=== PATIENT | male | born 1950 | race Hispanic/Latino ===

== ENCOUNTER 2022-09-18 08:31 | Day surgery (SDC) | payer MEDICARE ==
[2022-09-16 12:05] VITALS: BP 169/72
[2022-09-18] VITALS (11 sets, daily range): BP systolic 126–148; BP diastolic 54–62
[~2022-09-18] VITALS: Ht 157.5 cm; Wt 79.2 kg
[~2022-09-18 08:31] MED LIST: AMLO-258 PO; ATEN25TA PO; ATOR40TA69 PO; CLOP-31 PO; FURO20TA4 PO; LINA72CA PO; LORA10TA7 PO; LOSA100T59 PO; OMEP40CA21 PO; PREG75 PO
[2022-09-18] MEDS ORDERED: CLINDAMYCIN IVPB 900MG/50ML 50 ML IV ONE (08:46)
[2022-09-18] MEDS ORDERED: LACTATED RINGERS 1000ML 1,000 ML IV ONE (08:46)
[2022-09-18] MEDS ORDERED: PROPOFOL 10 MG/ML 20ML VIAL IV ONE (09:50)
[2022-09-18] MEDS ORDERED: LIDOCAINE PF 100MG/5ML (2%) SYRINGE 5ML ONE (09:50)
[2022-09-18] MEDS ORDERED: ROCURONIUM 10MG/1ML SYR 10 MG/ML ML ONE (09:51)
[2022-09-18] MEDS ORDERED: FENTANYL CITRATE PF 50 MCG/1 ML 2ML VIAL ONE (09:51)
[2022-09-18] MEDS ORDERED: LIDOCAINE HCL 1% 20 ML VIAL ONE (09:55)
[2022-09-18] MEDS ORDERED: BUPIVACAINE/PF 0.25% 30ML VIAL IJ ONE (09:55)
[2022-09-18] MEDS ORDERED: DEXAMETHASONE SOD PHOSPHATE 4 MG/ML 1ML VIAL ONE (10:44)
[2022-09-18] MEDS ORDERED: ONDANSETRON 4MG INJ ONE (10:44)
== END 2022-09-18 12:27 | disposition home or self-care (01) ==
LOC: DAH 08:31
PROVIDERS: ATTEND Surgery
DX: L72.3 Sebaceous cyst (principal); Z20.822 Contact with and (suspected) exposure to COVID-19; L72.0 Epidermal cyst; I10 Essential (primary) hypertension; K21.9 Gastro-esophageal reflux disease without esophagitis; E66.9 Obesity, unspecified; E78.5 Hyperlipidemia, unspecified; K76.0 Fatty (change of) liver, not elsewhere classified; I25.10 Atherosclerotic heart disease of native coronary artery without angina pectoris; Z90.49 Acquired absence of other specified parts of digestive tract; Z86.73 Personal history of transient ischemic attack (TIA), and cerebral infarction without residual deficits; Z79.899 Other long term (current) drug therapy; Z68.30 Body mass index [BMI] 30.0-30.9, adult
CPT/HCPCS: 87426; 93005; 11406; 88304; A6260; J1644; J1100; A4663; A4452; J7120; J3010; J3490 ×2; J2001; J2704; J2405; A4215; A4223; A4222; A4221